=== PATIENT | female | born 1995 | race Caucasian/White ===

== ENCOUNTER 2019-08-21 22:34 | Emergency (ER) | payer SELFPAY ==
--- OUTSIDE RECORDS SUMMARY | 2019-08-21 22:36 | XMS REPORT | Continuity of Care Document ---
:1995 Author Organization [facility] t Address [address] [place] [address] Care Team Providers Name Role Phone Jh Rincon DO Attending Clinician Problems This patient has no known problems. Allergies, Adverse Reactions, Alerts This patient has no known allergies or adverse reactions. Medications This patient has no known medications. Procedures This patient has no known procedures. Encounters Start End Encounter Admission Attending Care Care Encounter Source Date/Time Date/Time Type Type Clinicians Facility Department ID 2019-08-13 2019-08-13 Telephone DAVION Rincon [id number] 00:00:00 00:00:00 [facility] [id number] Jh Cornell [id number] [place] [id number] Medical [facility] Office Building Results This patient has no known results.
--- OUTSIDE RECORDS SUMMARY | 2019-08-21 22:36 | XMS REPORT | Summary of Care ---
:1995 Author Organization [facility] Address [address] [place] [address] Care Team Providers Name Role Phone IggyRaghuTeodora Primary Care Provider [phone] Reason for Visit Reason Comments Refill Request Encounter Details Date Type Department Care Team Description 08/13/2019 Telephone [facility] Ana Rincon, Refill Request Care, [address], [address] [place] [id number] [place], [place] [address] Allergies No Known Allergiesdocumented as of this encounter (statuses as of 08/13/2019) Medications Medication Sig Dispensed Refills Start End Status Date Date VENTOLIN HFA 90 USE 2 PUFFS 0 12/14/19 Ac tive mcg/actuation inhaler EVERY 4 TO 6 18 HOURS NEEDED medroxyPROGESTERone 1 mL by 1 Syringe 0 08/13/19 Active 150 mg/mL syringe Intramuscular 20 route every 3 (three) months. medroxyPROGESTERone 1 mL by 1 Syringe 1 07/19/19 Discontinued 150 mg/mL syringe Intramuscular 19 020 (Reorder) route every 3 (three) months. documented as of this encounter (statuses as of 08/13/2019) Active Problems Problem Noted Date Encounter for gynecological examination 12/20/2017 documented as of this encounter (statuses as of 08/13/2019) Immunizations Name Administration Dates Next Due HPV 10/11/2018 documented as of this encounter Social History Tobacco Use Types Packs/Day Years Used Date Current Every Day Smoker Cigarettes 0.25 Smokeless Tobacco: Never Used Alcohol Use Drinks/Week oz/Week Comments Yes socially Sex Assigned at Date Recorded Not on file Job Start Date Occupation Industry Not on file Not on file Not on file Travel History Travel Start Travel End No recent travel history available. documented as of this encounter Last Filed Vital Signs Not on filedocumented in this encounter Plan of Treatment Date Type Specialty Care Team Description 09/05/2019 Office Visit Obstetrics & Gynecology Blade Rincon DO [address] [place], [place] [address] [phone] Health Maintenance Due Date Last Done Comments VARICELLA VACCINES (1 of 2 - 08/27/1996 2-dose childhood series) MENINGOCOCCAL B VACCINES (1 of 2 - 08/27/2005 Risk Bexsero 2-dose series) DTaP,Tdap,and Td Vaccines (1 - 08/27/2006 Tdap) Depression Screening 2007 HPV VACCINES (2 - Female 3-dose 11/08/2018 10/11/2018 series) CHLAMYDIA SCREENING 12/20/2018 12/20/2017 INFLUENZA VACCINE (#1) 2019 PAP SMEAR 12/20/2020 12/20/2017 PNEUMOCOCCAL 0-64 YEARS COMBINED Aged Out No longer eligible based on SERIES patient's age to complete this topic documented as of this encounter Goals Goal Patient Goal Associated Recent Patient-Stated? Author Type Problems Progress Quit using Tobacco Use No Ana Rincon tobacco DO Jh (cigarettes, smokeless, etc) documented as of this encounter Results Not on filedocumented in this encounter Insurance Payer Benefit Plan / Subscriber ID Effective Dates Phone Addre ss Type Group [facility] [id number] 2017-[facility] HMO/ PPO/[facility] PPO t S documented as of this encounter
[2019-08-21] MEDS ORDERED: AMOX/K CLAV 875 MG TAB ONE (23:20)
[2019-08-21] MEDS ORDERED: TRAMADOL HCL 50 MG TAB ONE (23:21)
--- NOTE | 2019-08-21 23:24 | ER ---
Nurse's Notes [facility] Name: Maribel Terrell Age: 23 yrs Sex: Female : 1995 Arrival Date: 08/21/2019 Time: 22:38 Bed 16 Private MD: Diagnosis: Periapical abscess without sinus;Dental caries Presentation: 08/20 22:46 Chief complaint: Patient states: Right Side upper jaw and tooth pain that began last sg week, worsening this evening, pt reports pain to be a 10/10 at this time, described as tender and throbbing, pt denies N/V/D/Fever at this time. Coronavirus screen: Proceed with normal triage. Ebola Screen: Patient negative for fever greater than or equal to 101.5 degrees Fahrenheit, and additional compatible Ebola Virus Disease symptoms Patient denies exposure to infectious person. Patient denies travel to an Ebola-affected area in the 21 days before illness onset. No symptoms or risks identified at this time. Initial Sepsis Screen: Does the patient meet any 2 criteria? No. Patient's initial sepsis screen is negative. Does the patient have a suspected source of infection? No. Patient's initial sepsis screen is negative. Risk Assessment: Do you want to hurt yourself or someone else? Patient reports no desire to harm self or others. Onset of symptoms was August 21, 2019. Care prior to arrival: None. 22:46 Method Of Arrival: Ambulatory sg 22:46 Acuity: BARNEY 4 sg [employer]: 22:46 LMP N/A - Irregular menses sg Historical: - Allergies: 22:47 No Known Allergies; sg - PMHx: 22:47 None; sg - Immunization history:: Adult Immunizations up to date. - Social history:: Smoking status: Patient reports the use of cigarette tobacco products. Screenin:15 Abuse screen: Denies threats or abuse. Nutritional screening: No deficits noted. ea Tuberculosis screening: No symptoms or risk factors identified. Fall Risk None identified. Assessment: 23:14 General: Appears in no apparent distress. Behavior is calm, cooperative, appropriate ea for age. Pain: Complains of pain in upper right second molar and upper right first molar. Neuro: Level of Consciousness is awake, alert, obeys commands, Oriented to person, place, time. Respiratory: Airway is patent Respiratory effort is even, unlabored, Respiratory pattern is regular, symmetrical. EENT: Reports pain in mouth. Derm: Skin is pink, warm \T\ dry. 23:30 Reassessment: Patient and/or family updated on plan of care and expected duration. Pain ea level reassessed. Patient is alert, oriented x 3, equal unlabored respirations, skin warm/dry/pink. Discharge instruction given to patient, verbalized the understanding of instruction. Pt left ED ambulatory tolerating well. Vital Signs: 22:46 BP 118 / 83; Pulse 87; Resp 18; Temp 98.6; Pulse Ox 100% ; Weight 45.36 kg; Height 5 sg ft. 0 in. (152.40 cm); Pain 10/10; 22:46 Body Mass Index 19.53 (45.36 kg, 152.40 cm) sg ED Course: 22:38 Patient arrived in ED. es 22:46 Arm band placed on. sg 22:47 Triage completed. sg 22:58 Danica Mayo F[facility]-C is [facility]. kb 22:58 Boom Alexandre MD is Attending Physician. kb 22:58 Ben Bartholomew MD is Attending Physician. kb 23:03 Elise Becerra RN is Primary Nurse. ea 23:15 Patient has correct armband on for positive identification. Bed in low position. Call ea light in reach. 23:30 No provider procedures requiring assistance completed. Patient did not have IV access ea during this emergency room visit. Administered Medications: 23:13 Drug: Augmentin 875 mg Route: PO; ea 23:31 Follow up: Response: No adverse reaction ea 23:13 Drug: traMADol 50 mg {Note: RASS 0.} Route: PO; ea 23:31 Follow up: Response: No adverse reaction ea Outcome: 23:23 Discharge ordered by . kb 23:30 Discharged to home ambulatory, with friend. ea 23:30 Condition: stable 23:30 Discharge instructions given to patient, Instructed on discharge instructions, follow up and referral plans. medication usage, Demonstrated understanding of instructions, follow-up care, medications, Prescriptions given X 1. 23:31 Patient left the ED. ea Signatures: Danica Mayo FNP-C FNP-Ckb Gay, Steven, RN RN sg Salyer, Edna es Antunez, Elena RN RN ea Corrections: (The following items were deleted from the chart) 23:09 22:46 Chief complaint: Patient states: Right Side upper jaw and tooth pain that began sg last week, worsening this evening, pt reports pain to be a 10/10 at this time, described as tender and throbbing, pt reports N/V/D/Fever at this time sg
--- NOTE | 2019-08-21 23:24 | EDPHYS ---
Physician Documentation [facility] Name: Maribel Terrell Age: 23 yrs Sex: Female : 1995 Arrival Date: 08/21/2019 Time: 22:38 Bed 16 Private MD: ED Physician Ben Bartholomew HPI: 08/20 23:24 This 23 yrs old Female presents to ER via Ambulatory with complaints of kb Toothache. 23:24 The patient presents with pain, redness, swelling. The problem is located in the upper kb right second bicuspid (#4). Onset: The symptoms/episode began/occurred and became worse this morning. Duration: The symptoms are continuous. Modifying factors: The symptoms are alleviated by nothing, the symptoms are aggravated by nothing. Associated signs and symptoms: Pertinent positives: pain, redness in area, swelling. Severity of symptoms: At their worst the symptoms were moderate, in the emergency department the symptoms are unchanged. The patient has not experienced similar symptoms in the past. The patient has not recently seen a physician. Pt reports dental pain for months following a filling coming out. Pain got worse this morning and she feels swelling to gums. 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 - Social history:: Smoking status: Patient reports the use of cigarette tobacco products. ROS: 23:16 Constitutional: Negative for fever, chills, and weight loss, Neck: Negative for injury, kb pain, and swelling, Cardiovascular: Negative for chest pain, palpitations, and edema, Respiratory: Negative for shortness of breath, cough, wheezing, and pleuritic chest pain, Abdomen/GI: Negative for abdominal pain, nausea, vomiting, diarrhea, and constipation, MS/Extremity: Negative for injury and deformity, Skin: Negative for injury, rash, and discoloration, Neuro: Negative for headache, weakness, numbness, tingling, and seizure. 23:16 ENT: Positive for dental pain. Exam: 23:22 Constitutional: This is a well developed, well nourished patient who is awake, alert, kb and in no acute distress. Head/Face: Normocephalic, atraumatic. Chest/axilla: Normal chest wall appearance and motion. Nontender with no deformity. No lesions are appreciated. Cardiovascular: Regular rate and rhythm with a normal S1 and S2. No gallops, murmurs, or rubs. Normal PMI, no JVD. No pulse deficits. Respiratory: Lungs have equal breath sounds bilaterally, clear to auscultation and percussion. No rales, rhonchi or wheezes noted. No increased work of breathing, no retractions or nasal flaring. Abdomen/GI: Soft, non-tender, with normal bowel sounds. No distension or tympany. No guarding or rebound. No evidence of tenderness throughout. Skin: Warm, dry with normal turgor. Normal color with no rashes, no lesions, and no evidence of cellulitis. MS/ Extremity: Pulses equal, no cyanosis. Neurovascular intact. Full, normal range of motion. Neuro: Awake and alert, GCS 15, oriented to person, place, time, and situation. Cranial nerves II-XII grossly intact. Motor strength 5/5 in all extremities. Sensory grossly intact. Cerebellar exam normal. Normal gait. 23:22 ENT: Dental exam: dental caries, that is moderate, diffusely, gum swelling, specifically in the upper right second bicuspid (#4), pain, that is moderate, specifically in the upper right second bicuspid (#4). Vital Signs: 22:46 BP 118 / 83; Pulse 87; Resp 18; Temp 98.6; Pulse Ox 100% ; Weight 45.36 kg; Height 5 sg ft. 0 in. (152.40 cm); Pain 10/10; 22:46 Body Mass Index 19.53 (45.36 kg, 152.40 cm) sg MDM: 22:58 Patient medically screened. kb 23:23 Data reviewed: vital signs, nurses notes. Data interpreted: Pulse oximetry: on room air kb is 100 %. Interpretation: normal. Counseling: I had a detailed discussion with the patient and/or guardian regarding: the historical points, exam findings, and any diagnostic results supporting the discharge/admit diagnosis, the need for outpatient follow up, a dentist, to return to the emergency department if symptoms worsen or persist or if there are any questions or concerns that arise at home. Administered Medications: 23:13 Drug: Augmentin 875 mg Route: PO; ea 23:31 Follow up: Response: No adverse reaction ea 23:13 Drug: traMADol 50 mg {Note: RASS 0.} Route: PO; ea 23:31 Follow up: Response: No adverse reaction ea Disposition: 08/21 08:47 Co-signature as Attending Physician, Ben Bartholomew MD I agree with the assessment and loraine plan of care. Disposition: 08/21/19 23:23 Discharged to Home. Impression: Periapical abscess without sinus, Dental caries. - Condition is Stable. - Discharge Instructions: Dental Pain, [id number], Dental Abscess, [id number]. - Prescriptions for Augmentin 875- 125 mg Oral Tablet - take 1 tablet by ORAL route every 12 hours for 10 days; 20 tablet. - Medication Reconciliation Form, Thank You Letter, Antibiotic Education, Prescription Opioid Use form. - Follow up: Emergency Department; When: As needed; Reason: Worsening of condition. Follow up: Private Physician; When: 2 - 3 days; Reason: Recheck today's complaints, Continuance of care, Re-evaluation by your physician. Signatures: Danica Mayo FNP-C FNP-Jani Wood, Ben Shepherd RN, MD MD cha Antunez, Elena, RN RN ea Corrections: (The following items were deleted from the chart) 08/20 23:25 23:24 Pt reports dental pain for months following a filling coming out. Pain got worse kb this morning and she feels swelling to gums. kb 23:31 23:23 08/21/2019 23:23 Discharged to Home. Impression: Periapical abscess without ea sinus; Dental caries. Condition is Stable. Forms are Medication Reconciliation Form, Thank You Letter, Antibiotic Education, Prescription Opioid Use. Follow up: Emergency Department; When: As needed; Reason: Worsening of condition. Follow up: Private Physician; When: 2 - 3 days; Reason: Recheck today's complaints, Continuance of care, Re-evaluation by your physician. kb
[2019-08-22 00:30] VITALS: BP 118/83; TEMP 98.6; O2SAT 100
== END 2019-08-21 23:31 | disposition home or self-care (01) ==
LOC: ER 22:34
DX: K04.7 Periapical abscess without sinus (principal); Z72.0 Tobacco use
CPT/HCPCS: 99283